=== PATIENT | male | born 1985 | race Caucasian/White ===

== ENCOUNTER 2024-05-18 15:12 | Emergency (ER) | payer OTHER, SELFPAY ==
[2024-05-18 15:22] VITALS: BP 148/89
[2024-05-18 15:46] LABS: % Basophils 0.7 % (0-2); % Eosinophils 2.4 % (0-6); % Immature Granulocytes 0.4 % (0-0.5); % Lymphocytes 43.3 % (20.5-51.1); % Monocytes 7.5 % (1.7-9.3); % Neutrophils 45.7 % (42.2-75.2); Absolute Eosinophils 0.1 10^3/uL (0-0.7); Absolute Lymphocytes 2.4 10^3/uL (1.2-3.4); Absolute Monocytes 0.4 10^3/uL (0.1-0.6); Absolute Neutrophils 2.5 10^3/uL (1.4-6.5); Hematocrit 42.1 % (39.0-52.0); Hemoglobin 14.8 g/dL (13.0-18.0); Mean Corp Hgb Conc. 35.2 g/dL (33.0-37.0); Mean Corpuscular Hgb 29.4 pg (27.0-31.0); Mean Corpuscular Volume 83.7 fL (80.0-94.0); Nucleated Red Blood Cells % 0 % (-); Platelet Count 242 10^3/uL (130-400); Red Blood Cell Count 5.03 10^6/uL (4.70-6.10); Red Cell Dist. Width 12.3 % (11.5-14.5); White Blood Cell Count 5.5 10^3/uL (4.8-10.8)
[2024-05-18 15:57] LABS: ALT (SGPT) 15 U/L (0-50); AST (SGOT) 18 U/L (17-59); Albumin 4.6 g/dl (3.5-5.0); Alkaline Phosphatase 56 U/L (38-126); Blood Urea Nitrogen 13 mg/dl (9-20); Calcium 9.4 mg/dl (8.4-10.2); Carbon Dioxide 26 mmol/L (22-30); Chloride 104 mmol/L (98-107); Glucose 110 mg/dl (70-99); Sodium 138 mmol/L (135-145); Total Bilirubin 0.9 mg/dl (0.2-1.3); Total Protein 6.8 g/dl (6.3-8.2); eGFR > 60.00
[2024-05-18 16:10] LABS: Troponin I < 0.012 ng/ml
[2024-05-18 16:12] VITALS: BP 127/89; BMI 36.4
[2024-05-18 17:00] VITALS: BP 125/82
[2024-05-18 18:00] VITALS: BP 122/76
--- NOTE | 2024-05-18 18:00 | ED.GENMED ---
History of Present Illness
General
Chief Complaint: Chest Pain
Source: patient
Exam Limitations: none
Time Seen by Provider: 05/18/24 17:08
Nursing documentation reviewed up to this point in time: agreed with
History of Present Illness
History of Present Illness:
39-year-old male with past medical history of previous smoking previous asthma presenting to the emergency department today with concern of central chest pain while doing errands today that roughly 5 hours prior to arrival to the emergency
department. Denies any associate shortness of breath nausea vomiting or diaphoresis. Denies any history of heart disease. Was a previous smoker but claims he does not smoke much at this point. Denies nausea vomiting recent trauma surgery
immobilization.
Past History
Past History
ED Past Medical History: Other (Hemorrhoid genital warts, childhood asthma)
ED Past Surgical History: None
Social History
Tobacco: Smoker
Alcohol: Occasional
Drug: None
Personal: Single
Living: with family
Employment: Employed
Family History
Family History: Hypertension
Review of Systems
Review of Systems
Allergies reviewed?: Yes
All Other Systems: ROS reviewed and negative except as documented in HPI and ROS
Phy Exam
Physical Exam
Physical Exam:
GENERAL: Alert , in no apparent distress
EYE: pupils equal and reactive
NECK: Supple, no significant adenopathy.
ENT: o/p clr, mmm.
CARDIAC: Regular rate and rhythm .
LUNGS: Clear breath sounds bilaterally, no acute respiratory distress, no wheezes/rales/rhonchi
ABDOMEN: Soft, without focal tenderness, no r/g, no cvat
NEUROLOGICAL: Alert and oriented, no focal neuro deficits
SKIN: Warm and dry, skin intact.
MUSCULOSKELETAL: No edema, well perfused.
PSYCH: Normal and appropriate interaction.
Scores
Heart Score for Chest Pain Patients
STEMI patient?: No
History: Slightly or Non-Suspicious
ECG: Normal
Age: </= 45 years
Risk Factors: 1 or 2 Risk Factors
Troponin: </= Normal Limit
Heart Score for Chest Pain Patients: 1
Heart Score Risk: 2.5% MACE over next 6 weeks
Course
Orders/Labs/Results
Orders:
Orders
05/18/24 15:22
EKG [Electrocardiogram (*1)] Urgent
Reason for Study: Chest Pain
EKG- Treatment ONCE
05/18/24 15:36
CMP [Comprehensive Metabolic Panel] Urgent
Complete Blood Count/With Diff Urgent
Troponin I Urgent
05/18/24 17:08
Chest [CR Chest - 2 Views ] Urgent
Comment:
Reason For Exam: cp
Abnormal Lab Results
05/18/24
15:36
Glucose 110 H mg/dl
(70-99)
05/18/24 15:36
05/18/24 15:36
Vital Signs
Initial and Last Documented VS:
Initial Vital Signs
Temp Pulse Resp BP Pulse Ox
98.1 F 78 18 148/89 97
05/18/24 15:22 05/18/24 15:22 05/18/24 15:22 05/18/24 15:22 05/18/24 15:22
Last Documented Vital Signs
Temp Pulse Resp BP Pulse Ox
98.1 F 64 19 122/76 97
05/18/24 15:22 05/18/24 17:45 05/18/24 17:45 05/18/24 18:00 05/18/24 17:45
MDM/Problems Addressed
MDM/Problems Addressed:
39-year-old male presenting to the emergency department today with concerns of central chest pressure without associated symptoms pain upon arrival symptoms already resolved vital signs initially with mildly elevated blood pressure but otherwise
improving without specific treatment. Labs unremarkable EKG normal troponin negative. Troponin was drawn at least 3 hours after send resolution. Chest x-ray normal. No evidence of acute process at this time advised for close outpatient
follow-up. Return precautions given.
*Critical Care Note
Total Time (30-74mins, 75-104mins- exclusive of procedures): Not Applicable
ED Attending Note
-
Portions of this chart may have been created with voice recognition software.� Occasional wrong word or��sound alike� substitutions may have occurred due to the inherent limitations of voice recognition software.
Discharge Plan
Departure
Patient Disposition: Home (Routine Discharge)
Date of Disposition: 05/18/24
Time of Disposition: 18:00
Patient with high blood pressure during this ER visit?: No
Condition: Good
Covid-19: Not Applicable
Discharge Problem:
Chest pain
Instructions: Chest Pain CBC Follow Up
Prescriptions:
No Action
No Meds
imiquimod [Aldara] 1 EACH cream in packet
1 applic S DAILY Qty: 10 0RF
docusate sodium 100 MG capsule
100 mg PO BIDPRN PRN (Reason: to loosen stools) Qty: 30 0RF
metoprolol tartrate 25 MG tablet
25 mg PO BIDPRN PRN (Reason: palpitations) Qty: 30 0RF
Referrals:
Jensen Kothari DO [Family Provider] -
Activity Restrictions/Additional Instructions:
You came to the emergency department today with concerns of chest discomfort. Please follow closely with cardiology for further assessment. Return to the emergency department for any worsening, new or concerning symptoms.
Interventions
Interventions:
*Risk Screen - Suicide Last Done: 05/18/24 15:22
*General Assessment Last Done: 05/18/24 16:12
*Neglect/Abuse Screening Last Done: 05/18/24 15:22
ED- Fall Risk Assessment Last Done: 05/18/24 16:12
*ED COVID-19 Vaccine History Last Done: 05/18/24 15:22
*Nursing Disposition Last Done: 05/18/24 18:04
ED- Cardiac Assessment Last Done: 05/18/24 16:12
Discharge Date and Time
Discharge Date/Time: 05/18/24 18:04
Print Language: ARMENIAN
== END 2024-05-18 18:04 | disposition home or self-care (01) ==
LOC: EMR 15:12
PROVIDERS: EMERGENCY PHYSICIAN Emergency Medicine; FAMILY PHYSICIAN Family Medicine
DX: R07.89 Other chest pain (principal); F17.200 Nicotine dependence, unspecified, uncomplicated; J45.909 Unspecified asthma, uncomplicated
CPT/HCPCS: 99285; 71046; 80053; 84484; 85025; 93005